=== PATIENT | female | born 1980 | race Two or more races ===

== ENCOUNTER 2019-06-23 18:11 | Emergency (ER) | payer OTHER ==
[~2019-06-23] VITALS: Ht 162.6 cm; Wt 65.8 kg
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
--- NOTE | 2019-06-23 18:50 | NUR ---
Patient discharged to PD in stable condition. Written and verbal after care instructions given. Patient verbalizes understanding of instruction.
[2019-06-23 19:09] VITALS: BP 129/83
== END 2019-06-23 18:50 ==
LOC: ER 18:16
DX: S00.33XA Contusion of nose, initial encounter (principal); F10.129 Alcohol abuse with intoxication, unspecified; V43.52XA Car driver injured in collision with other type car in traffic accident, initial encounter; Y93.89 Activity, other specified; Y92.413 State road as the place of occurrence of the external cause; Y99.8 Other external cause status; Y90.9 Presence of alcohol in blood, level not specified

== ENCOUNTER 2020-11-24 10:31 | Emergency (ER) | payer OTHER ==
[~2020-11-24] VITALS: Ht 149.9 cm; Wt 81.6 kg
--- NOTE | 2020-11-24 10:56 | NUR ---
THE PATIENT BIBS FOR C/O COUGH, RUNNY NOSE AND WEAKNESS STARTED YESTERDAY. IN ROOM AIR AND DENIES SOB. RESPIRATION REGULAR AND UNLABORED. DENIES PAIN. ATTACHED TO THE MONITOR.
[2020-11-24] MEDS ORDERED: ACETAMINOPHEN ES 500 MG TABLET ONE (11:05)
[2020-11-24] MEDS: ACETAMINOPHEN ES 500 MG TABLET PO ONE (11:07)
--- NOTE | 2020-11-24 11:30 | NUR ---
Patient discharged to home in stable condition. Written and verbal after care instructions given. Patient verbalizes understanding of instruction. Pt ambulatory with a steady gait
[2020-11-24 11:49] VITALS: BP 113/67
== END 2020-11-24 11:35 | disposition home or self-care (01) ==
LOC: ER 10:43
DX: R05 Cough (principal); R52 Pain, unspecified; Z20.822 Contact with and (suspected) exposure to COVID-19; Z90.710 Acquired absence of both cervix and uterus
CPT/HCPCS: 99283; C9803; U0003

== ENCOUNTER 2021-02-23 11:50 | Emergency (ER) | payer OTHER ==
[~2021-02-23] VITALS: Ht 147.3 cm; Wt 83.9 kg
--- NOTE | 2021-02-23 11:50 | NUR ---
PT BIB SELF C/O HEADACHE, DIZZINESSS AND R FACIAL NUMBNESS STARTED YESTERDAY. PT IS AAOX4, NOT IN RESPIRATORY DISTRESS, V/S STABLE, KEPT RESTED AND COMFORTABOL. WILL CONTINUE TO MONITOR.
--- NOTE | 2021-02-23 12:25 | NUR ---
AT BEDSIDE FOR EVAL.
[2021-02-23] MEDS ORDERED: IV NS 0.9% 1,000 ML BAG IV ONE (13:00)
[2021-02-23] MEDS ORDERED: KETOROLAC TROMETHAMINE INJ 30 MG/ML VIAL IV ONE (13:00)
[2021-02-23] MEDS ORDERED: ACETAMINOPHEN ES 500 MG TABLET PO ONE (13:00)
[2021-02-23] MEDS ORDERED: METOCLOPRAMIDE HCL 10 MG/2 ML VIAL IV ONE (13:00)
[2021-02-23] MEDS ORDERED: METOCLOPRAMIDE HCL 10 MG/2 ML VIAL ONE (13:09)
[2021-02-23] MEDS ORDERED: ACETAMINOPHEN ES 500 MG TABLET ONE (13:10)
--- NOTE | 2021-02-23 13:21 | NUR ---
IV LINE ESTABLISHED BLOOD DRAWN AND SENT TO LAB.
[2021-02-23] MEDS ORDERED: KETOROLAC TROMETHAMINE 15 MG/ML VIAL ONE (13:47)
[2021-02-23 14:41] VITALS: BP 125/72
--- NOTE | 2021-02-23 14:41 | NUR ---
IV removed. Catheter intact and site benign. Pressure and 4x4 applied to site. No bleeding noted. Patient discharged to home in stable condition. Written and verbal after care instructions given. Patient verbalizes understanding of instruction.
== END 2021-02-23 14:42 | disposition home or self-care (01) ==
LOC: ER 11:56
DX: R51.9 Headache, unspecified (principal); Z20.822 Contact with and (suspected) exposure to COVID-19; Z90.710 Acquired absence of both cervix and uterus; R03.0 Elevated blood-pressure reading, without diagnosis of hypertension
CPT/HCPCS: 84703; 96361; 96374; 99284; C9803; J2765; J7030; U0003; J1885